=== PATIENT | female | born 1980 | race Caucasian/White ===

== ENCOUNTER → 2017-02-13 | Day surgery (SDC) | payer BC ==
[~2017-02-13] MED LIST: Glycopyrrolate 0.2 MG/ML SDV IVPUSH ONE; Lactated Ringers 1,000 ML IV SCH; Propofol 200 MG/20 ML SDV IV ONE
[2017-02-13 09:48] VITALS: BP 150/92
--- NOTE | 2017-02-13 10:47 | OR ---
DATE OF OPERATION: 02/13/2017 PREOPERATIVE DIAGNOSIS: PERSISTENT NAUSEA AND VOMITING. POSTOPERATIVE DIAGNOSIS: PERSISTENT NAUSEA AND VOMITING. SURGEON: Tyler Jones MD PROCEDURE: ESOPHAGOGASTRODUODENOSCOPY WITH BIOPSIES X2, JOLIE. 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 COMPLICATIONS: None. SPECIMEN: 1. Duodenal biopsy x1. 2. Distal esophageal biopsy x1. 3. JOLIE. FINDINGS: 1. Full-length EGD. 2. Minimal duodenitis. 3. GERD with mild grade 1 distal esophagitis. RECOMMENDATIONS: Medical followup with Dr. Traore. INDICATIONS: The patient has been having some ongoing issues for a few weeks of nausea and emesis not associated with much abdominal pain. Dr. Traore sent her for EGD. DESCRIPTION OF PROCEDURE: The patient was prepped and draped, placed in the left lateral decubitus position. A lubricated Olympus gastroscope was inserted over a bit and easily intubated in the esophagus. Esophageal lining was benign until its most distal portion. She has no hiatal hernia, but there was some spontaneous reflux with mild distal esophagitis grade 1 without any ulceration. Biopsy of the distal esophagus and its most affected portion were taken. Scope was advanced into the stomach through the pylorus into the 2nd portion of the duodenum. The 2nd portion of duodenum was benign. The bulb had a very very mild amount of erythema, maybe consistent with some mild duodenitis. A biopsy was taken. The scope was brought back into the stomach and retroflexed. The upper fundus and cardia appeared benign. Upon straightening and thorough evaluation of the rest of the fundus and antrum showed no gross abnormalities including polyps, mass, ulceration, bleeding sites or any signs of gastritis. A CLOtest was obtained. Air was then suctioned. Scope was removed without complication. GUADALUPE/ANCELMO /[id number]
== END ==
LOC: CC.SDS 08:26
PROVIDERS: ATTEND Family Medicine
DX: K21.0 Gastro-esophageal reflux disease with esophagitis (principal); K29.80 Duodenitis without bleeding; I10 Essential (primary) hypertension; Z91.09 Other allergy status, other than to drugs and biological substances; Z79.82 Long term (current) use of aspirin; Z79.899 Other long term (current) drug therapy; Z98.890 Other specified postprocedural states
CPT/HCPCS: 43239; 87081; J2704; J7120

== ENCOUNTER 2017-04-13 16:12 | Observation (INO) | payer BC ==
[2017-04-13 16:39] LABS: CHLORIDE,CL 102 mEq/L (98-106); SODIUM,NA 140 mEq/L (136-145)
[2017-04-13] MEDS ORDERED: Lactated Ringers 1,000 ML IV SCH ×2 (17:20→21:45)
[2017-04-13] MEDS ORDERED: Iopamidol 612 MG/ML 100 ML Bottle IVPUSH ONE (19:05)
[2017-04-13] MEDS ORDERED: Enoxaparin 40 MG/0.4 ML Syringe SUBCUT SCH (21:00)
[2017-04-13] MEDS ORDERED: Levofloxacin/Dextrose 5%-Water 500 MG in Premix Bag 1 BAG IV SCH (21:00)
[2017-04-13] MEDS ORDERED: Levofloxacin/Dextrose 5%-Water 100 ML IV ONE (21:17)
[2017-04-13] MEDS ORDERED: metroNIDAZOLE/Normal Saline 100 ML ONE (21:17)
[2017-04-13] MEDS ORDERED: Ondansetron 4 MG/2 ML SDV ONE (21:23)
[2017-04-13] MEDS ORDERED: Ondansetron 4 MG/2 ML SDV IV PRN (21:38)
[2017-04-13] MEDS ORDERED: Sodium Chloride 0.9% 10 ML Syringe FLUSH PRN (21:45)
[2017-04-13] MEDS ORDERED: fentaNYL 100 MCG/2 ML SDV IVPUSH PRN (21:45)
[2017-04-13] MEDS: metroNIDAZOLE/Normal Saline 500 MG in Premix Bag 1 BAG IV SCH (22:00)
[2017-04-14] MEDS: metroNIDAZOLE/Normal Saline 500 MG in Premix Bag 1 BAG IV SCH (05:49)
--- NOTE | 2017-04-14 08:29 | PCM.DCSUM1 ---
Discharge Summary - Hospital Course Free Text/Narrative:: Patient is a 36 year old female who was admitted to the hospital from the clinic on 04/13/2017. She presented to the clinic with complaints of colicky upper quadrant abdominal pain starting around 4 am that became more constant throughout the day. She described the pain as sharp and crampy. She was having nausea with intermittent vomiting, as well as loose stools. Denied any fever, melena, hematochezia, or hematemesis. Her WBC and CRP were elevated, so she had an abdominal/pelvic CT which showed diffuse ileitis. She received IV fluids, as well as dose of IV antibiotics. She was unable to keep fluids or medications down, so she was admitted for observation. Throughout night, patients nausea and vomiting resolved. At time of discharge, patient was tolerating oral intake. Her abdominal pain had also improved. Her WBC was 12.8 on admission and 6.4 upon discharge. She was afebrile. She felt ready to discharge home on oral antibiotics. - Discharge Data Discharge Date: 04/14/17 Discharge Disposition: Home, Self-Care 01 Condition: Good - Discharge Diagnosis/Problem(s) (1) Ileitis SNOMED Code(s): 33659536 ICD Code: K52.9 - NONINFECTIVE GASTROENTERITIS AND COLITIS, UNSPECIFIED Status: Acute Priority: High - Patient Instructions Diet: Usual Diet as Tolerated (bland diet until abdominal pain & nausea resolve completely ) Activity: As Tolerated Notify Provider of: Fever, Increased Pain, Nausea and/or Vomiting - Discharge Plan Prescriptions/Med Rec: Ciprofloxacin [Ciprofloxacin HCl] 500 mg PO BID 10 Days #20 tablet metroNIDAZOLE [Flagyl] 500 mg PO Q8H 10 Days #30 tablet Ondansetron [Zofran] 4 mg PO Q6H PRN #30 tab PRN Reason: Nausea Home Medications: Home Meds Norethindrone Acetate 1 tab PO DAILY 03/02/15 [History] Topiramate [Topamax] 1 tab PO DAILY 03/02/15 [History] Protriptyline HCl [Protriptyline] 20 mg PO BEDTIME 01/11/16 [History] Aspirin [Alysa Chewable Aspirin] 81 mg PO DAILY 05/03/16 [History] Atenolol 25 mg PO DAILY 05/03/16 [History] Albuterol Sulfate 2.5 mg IH Q4H PRN 02/12/17 [History] Cholecalciferol (Vitamin D3) [Vitamin D3] 2 tab PO DAILY 02/12/17 [History] SUMAtriptan Succinate [Imitrex] 50 mg PO ASDIRECTED 02/12/17 [History] Vortioxetine Hydrobromide [Trintellix] 10 mg PO DAILY 02/12/17 [History] guaiFENesin/Dextromethorphan [Mucinex Dm ER 600-30 mg Tablet] 1 each PO BID [History] Metoclopramide HCl [Reglan] 5 mg PO TID 04/13/17 [History] Ciprofloxacin [Ciprofloxacin HCl] 500 mg PO BID 10 Days #20 tablet 04/14/17 [Rx] Ondansetron [Zofran] 4 mg PO Q6H PRN #30 tab 04/14/17 [Rx] metroNIDAZOLE [Flagyl] 500 mg PO Q8H 10 Days #30 tablet 04/14/17 [Rx] Patient Handouts: Abdominal Pain, Adult, [id number], Nausea and Vomiting, Adult Referrals: Stanley Traore MD [Family Provider] - - Discharge Summary/Plan Comment Discharge Summary/Plan Comment: Patient will be discharge home on 10 day antibiotic regimen as advised by GI. Harrison as needed for nausea. Follow up in clinic with Dr. Traore in one week. C-reactive protein at that time. Patient to get lab work prior to appointment. Arrangements will be made at that time for colonoscopy. - General Info Date of Service: 04/14/17 Admission Dx/Problem (Free Text: Diffuse Ileitis Subjective Update: Patient reports her nausea and vomiting have resolved. She does still have some tenderness to her upper abdomen, but reports it is much improved. Has been afebrile and tolerating oral intake. Functional Status: Reports: Pain Controlled, Tolerating Diet, Ambulating, Urinating. Denies: New Symptoms - Review of Systems General: Reports: No Symptoms. Denies: Fever, Weakness, Fatigue, Chills HEENT: Reports: No Symptoms Pulmonary: Reports: No Symptoms. Denies: Shortness of Breath, Cough Cardiovascular: Reports: No Symptoms. Denies: Chest Pain, Lightheadedness Gastrointestinal: Reports: Abdominal Pain (upper ), Decreased Appetite. Denies : Diarrhea, Hematochezia, Melena, Nausea, Vomiting Genitourinary: Reports: No Symptoms. Denies: Dysuria, Frequency - Patient Data Vitals - Most Recent: Last Vital Signs Temp 98.8 F 04/14/17 04:00 Pulse 87 04/14/17 04:00 Resp 16 04/14/17 04:00 BP 149/80 H 04/14/17 04:00 Pulse Ox 97 04/14/17 04:00 Weight - Most Recent: 168 lb 10.458 oz I&O - Last 24 hours: Intake & Output 04/13/17 04/14/17 04/14/17 22:59 06:59 14:59 Intake Total 100 Balance 100 Lab Results - Last 24 hrs: Laboratory Results - last 24 hr 04/13/17 04/13/17 04/14/17 Range/Units 16:19 16:19 05:11 WBC 12.8 H 6.4 (5.0-10.0) 10^3/uL RBC 5.73 H 4.87 (4.00-5.50) 10^6/uL Hgb 16.9 H 14.5 (12.0-16.0) g/dL Hct 48.0 H 41.7 (37.0-47.0) % MCV 83.8 85.6 (82.0-94.0) fL MCH 29.5 29.8 (27.0-32.0) pg MCHC 35.2 34.8 (33.0-38.0) g/dL RDW Coeff of Vicky 13.2 13.0 (11.0-15.0) % Plt Count 328 258 (150-400) 10^3/uL Neut % (Auto) 84.0 76.0 (35-85) % Lymph % (Auto) 8.5 L 13.9 (10-55) % Turner % (Auto) 6.5 8.5 (0-16) % Eos % (Auto) 0.9 1.4 (0-5) % Baso % (Auto) 0.1 0.2 (0-3) % Neut # (Auto) 10.77 H 4.85 (1.80-7.00) 10^3/uL Lymph # (Auto) 1.09 0.89 L (1.00-4.80) 10^3/uL Turner # (Auto) 0.83 H 0.54 (0.00-0.80) 10^3/uL Eos # (Auto) 0.11 0.09 (0.00-0.45) 10^3/uL Baso # (Auto) 0.01 0.01 10^3/uL Sodium 140 (136-145) mEq/L Potassium 4.0 (3.5-5.0) mEq/L Chloride 102 (98-106) mEq/L Carbon Dioxide 28 (21-32) mmol/L BUN 10 D (7-18) mg/dL Creatinine 0.7 (0.6-1.0) mg/dL Est Cr Clr Drug Dosing TNP Estimated GFR (MDRD) > 60 (>=60) mL/min Glucose 106 H (75-99) mg/dL Calcium 8.6 (8.4-10.1) mg/dL Total Bilirubin 1.5 H (0.0-1.0) mg/dL AST 16 (15-37) U/L ALT 26 (12-78) U/L Alkaline Phosphatase 82 (46-116) U/L C-Reactive Protein 2.9 H (0.2-0.8) mg/dL Total Protein 7.7 (6.4-8.2) g/dL Albumin 4.1 (3.4-5.0) g/dL Amylase 48 (25-115) U/L 04/14/17 Range/Units 05:11 WBC (5.0-10.0) 10^3/uL RBC (4.00-5.50) 10^6/uL Hgb (12.0-16.0) g/dL Hct (37.0-47.0) % MCV (82.0-94.0) fL MCH (27.0-32.0) pg MCHC (33.0-38.0) g/dL RDW Coeff of Vicky (11.0-15.0) % Plt Count (150-400) 10^3/uL Neut % (Auto) (35-85) % Lymph % (Auto) (10-55) % Turner % (Auto) (0-16) % Eos % (Auto) (0-5) % Baso % (Auto) (0-3) % Neut # (Auto) (1.80-7.00) 10^3/uL Lymph # (Auto) (1.00-4.80) 10^3/uL Turner # (Auto) (0.00-0.80) 10^3/uL Eos # (Auto) (0.00-0.45) 10^3/uL Baso # (Auto) 10^3/uL Sodium (136-145) mEq/L Potassium (3.5-5.0) mEq/L Chloride (98-106) mEq/L Carbon Dioxide 28 (21-32) mmol/L BUN 5 L (7-18) mg/dL Creatinine 0.6 (0.6-1.0) mg/dL Est Cr Clr Drug Dosing 106.19 Estimated GFR (MDRD) > 60 (>=60) mL/min Glucose 101 H (75-99) mg/dL Calcium 8.3 L (8.4-10.1) mg/dL Total Bilirubin (0.0-1.0) mg/dL AST (15-37) U/L ALT (12-78) U/L Alkaline Phosphatase (46-116) U/L C-Reactive Protein 4.5 H (0.2-0.8) mg/dL Total Protein (6.4-8.2) g/dL Albumin (3.4-5.0) g/dL Amylase (25-115) U/L Med Orders - Current: Current Medications Enoxaparin Sodium (Lovenox) 40 mg SUBCUT Q24H [facility] Fentanyl (Sublimaze) 25 mcg IVPUSH Q6H PRN PRN Reason: Pain Lactated Ringer's (Ringers, Lactated) 1,000 mls @ 125 mls/hr IV ASDIRECTED [facility] Last Admin: 04/14/17 00:09 Dose: 125 mls/hr Metronidazole 500 mg/ Premix 100 mls @ 100 mls/hr IV Q8H [facility] Levofloxacin/Dextrose 500 mg/ (Premix) 100 mls @ 100 mls/hr IV Q24H [facility] Ondansetron HCl (Zofran) 4 mg IV Q4H PRN PRN Reason: Nausea/Vomiting Last Admin: 04/13/17 21:57 Dose: 4 mg Sodium Chloride (Saline Flush) 10 ml FLUSH ASDIRECTED PRN PRN Reason: Keep Vein Open Discontinued Medications Enoxaparin Sodium (Lovenox) 40 mg SUBCUT Q24H [facility] Last Admin: 04/13/17 22:15 Dose: 40 mg Lactated Ringer's (Ringers, Lactated) 1,000 mls @ 250 mls/hr IV ASDIRECTED [facility] Last Admin: 04/13/17 17:38 Dose: 250 mls/hr Levofloxacin/Dextrose (Levaquin In D5w 500 Mg/100 Ml) Confirm Administered Dose 100 mls @ as directed IV .STK-MED ONE Stop: 04/13/17 21:18 Last Admin: 04/13/17 22:02 Dose: Not Given Metronidazole (Flagyl 500 Mg In Ns 100 Ml) Confirm Administered Dose 100 mls @ as directed .ROUTE .STK-MED ONE Stop: 04/13/17 21:18 Last Admin: 04/13/17 22:01 Dose: Not Given Levofloxacin/Dextrose 500 mg/ (Premix) 100 mls @ 100 mls/hr IV Q24H [facility] Last Admin: 04/13/17 21:59 Dose: 100 mls/hr Metronidazole 500 mg/ Premix 100 mls @ 100 mls/hr IV Q8H [facility] Last Admin: 04/14/17 05:49 Dose: 100 mls/hr Iopamidol (Isovue-300 (61%)) 100 ml IVPUSH ONETIME ONE Stop: 04/13/17 19:06 Last Admin: 04/13/17 19:29 Dose: 100 ml Ondansetron HCl (Zofran) Confirm Administered Dose 4 mg .ROUTE .STK-MED ONE Stop: 04/13/17 21:24 Last Admin: 04/13/17 22:02 Dose: Not Given - Exam General: Reports: Alert, Oriented Lungs: Reports: Clear to Auscultation, Normal Respiratory Effort Cardiovascular: Reports: Regular Rate, Regular Rhythm GI/Abdominal Exam: Normal Bowel Sounds, Soft, No Organomegaly, No Distention, No Abnormal Bruit, No Mass, Pelvis Stable, Tender (upper abdomen). No: Distended, Guarding, Rigid, Rebound Neurological: Reports: No New Focal Deficit Psy/Mental Status: Reports: Alert, Normal Affect, Normal Mood *Q Meaningful Use (DIS) - VTE *Q VTE Criteria *Q: - Stroke *Q Stroke Criteria *Q: - AMI *Q AMI Criteria *Q:
[2017-04-14] MEDS ORDERED: FLU Vacc QS 2017-18 (36mos UP)/PF 60 MCG/0.5 ML Syringe IM ONE (08:45)
[2017-04-14 09:08] VITALS: BP 144/78
[2017-04-14 09:14] LABS: CHLORIDE,CL 104 mEq/L (98-106); SODIUM,NA 139 mEq/L (136-145)
--- NOTE | 2017-04-14 09:50 | PN ---
DATE: 04/14/2017 Laura Bautista is in with an abdominal pain, CT shows ileitis, question Crohn's, started on IV antibiotics, it is better today, abdomen is basically soft. Lab white count is down from 12 to 6, C-reactive protein is up a little bit at 4.5, panel look good. We will be discharging the patient home today and I will see her back in clinic next week and I will go ahead and do a colonoscopy on her. She will go home on her IV antibiotics. Discharge summary as per Latoya. IRENE/ANCELMO /[id number]
[2017-04-14] MEDS ORDERED: metroNIDAZOLE/Normal Saline 500 MG in Premix Bag 1 BAG IV SCH (16:00)
[2017-04-14] MEDS ORDERED: Levofloxacin/Dextrose 5%-Water 500 MG in Premix Bag 1 BAG IV SCH (20:00)
[2017-04-14] MEDS ORDERED: Enoxaparin 40 MG/0.4 ML Syringe SUBCUT SCH (20:00)
== END 2017-04-14 09:47 | disposition home or self-care (01) ==
LOC: CC.MS 16:12 → CC.FCMC 16:12 → UNDOADMOB 21:15 → CC.MS 21:15
PROVIDERS: ADMIT Physician Assistant Medical; ATTEND General Practice
DX: K52.9 Noninfective gastroenteritis and colitis, unspecified (principal); Z79.82 Long term (current) use of aspirin; Z79.899 Other long term (current) drug therapy; Z91.09 Other allergy status, other than to drugs and biological substances
CPT/HCPCS: 36415; 74020; 74177; 80048; 80053; 82150; 85025; 86140; 96361; 96365; 96366; 96367; 96372; 96375; G0008; G0378; J1650; J1956; J2405; J7120; Q9967; 90686

== ENCOUNTER → 2017-05-15 | Day surgery (SDC) | payer BC ==
[~2017-05-15] MED LIST changes: -Glycopyrrolate 0.2 MG/ML SDV IVPUSH ONE
[2017-05-15 13:08] VITALS: BP 136/75
--- NOTE | 2017-05-15 13:38 | OR ---
DATE OF OPERATION: 05/15/2017 PREOPERATIVE DIAGNOSIS: 1. EPIGASTRIC PAIN. 2. ALTERED BOWEL HABITS. POSTOPERATIVE DIAGNOSIS: 1. EPIGASTRIC PAIN. 2. ALTERED BOWEL HABITS. SURGEON: Tyler Jones MD PROCEDURE: 1. EGD WITH BIOPSIES X3, JOLIE, POLYPECTOMY. 2. FULL-LENGTH COLONOSCOPY WITH RANDOM BIOPSIES X7. 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 COMPLICATIONS: None. SPECIMEN: 1. Duodenal biopsy x1. 2. Antral JOLIE. 3. Fundal polyp. 4. Distal esophageal biopsy x1. 5. Random colon biopsies including terminal ileum x7. FINDINGS: 1. Full-length EGD. 2. Mild duodenitis of the duodenal bulb. 3. Benign adenomatous fundal polyp. 4. Chronic GERD with mild reflux esophagitis. 5. Normal full-length colonoscopy. RECOMMENDATIONS: The patient will be placed on proton pump therapy for her reflux and she will have follow up for path reports with her primary physician. INDICATIONS: The patient has apparently been having some persistent epigastric and substernal pain with some altered bowel habits. Dr. Traore sent her for upper and lower endoscopy. DESCRIPTION OF PROCEDURE: The patient was prepped and draped, placed in the left lateral decubitus position. A lubricated Olympus gastroscope was inserted over a bit and advanced to cricopharyngeus area and easily intubated in the esophagus. Esophageal line was benign in its entire course. The most distal portion of the esophagus showed some mild esophagitis without ulceration or erosion. There was no gross hernia present but spontaneous reflux was seen. Biopsy was taken of the affected portion. The scope was advanced into the stomach through the pylorus into the second portion of duodenum. This was benign. The duodenal bulb did show some mild inflammatory change. A biopsy was taken but no ulcers were seen. The scope was brought back into the stomach. For the most part, the entire gastric lining was unremarkable without any signs of peptic ulcer disease. There was one small benign adenomatous polyp in the upper fundus which was removed with a cold forceps biopsy. CLOtest was obtained. Air was suctioned. Scope was removed without complication. A lubricated Olympus colonoscope was then inserted in usual fashion. We were able to easily advance to the cecum without problem. Ileocecal valve and appendiceal orifice were visualized. We were able to intubate into the ileocecal valve and visualize the terminal ileum. No gross abnormalities were seen. Because of the patient's persistent abdominal pain and some occasional altered bowel habits, random biopsies were taken including of the terminal ileum; a total of seven random biopsies at the terminal ileum, cecum, hepatic and splenic flexure, sigmoid, rectosigmoid, and rectal vault. Throughout the length of the colon, I could really find no signs of any obvious colitis. There were no polyps, masses, ulcerations, or bleeding sites. No vascular abnormalities or diverticula. Retroflexion of the scope in the rectum showed no anal lesions. Air was suctioned. Scope was removed without complication. GUADALUPE/ANCELMO /[id number]
== END ==
LOC: CC.SDS 11:02
PROVIDERS: ATTEND Family Medicine
DX: K31.7 Polyp of stomach and duodenum (principal); K20.9 Esophagitis, unspecified; K52.9 Noninfective gastroenteritis and colitis, unspecified; F41.9 Anxiety disorder, unspecified; F32.9 Major depressive disorder, single episode, unspecified; I10 Essential (primary) hypertension; E78.5 Hyperlipidemia, unspecified; E04.1 Nontoxic single thyroid nodule; E55.9 Vitamin D deficiency, unspecified; Z91.09 Other allergy status, other than to drugs and biological substances; Z79.82 Long term (current) use of aspirin; Z79.899 Other long term (current) drug therapy; Z72.0 Tobacco use
CPT/HCPCS: 36415; 43239; 45380; 84703; 87081; J2704; J7120

== ENCOUNTER → 2019-05-20 | Day surgery (SDC) | payer BC ==
[2019-05-20] MEDS: Lactated Ringers 1,000 ML IV SCH (07:52)
[2019-05-20] MEDS: Benzocaine 20% Oral Spray 59.2 ML Canister MUCMEM ONE (08:02)
[2019-05-20] MEDS: Midazolam 1 MG/ML 2 ML SDV IV ONE (08:04)
[2019-05-20] MEDS: Meperidine PF 25 MG/ML Syringe IV ONE ×2 (08:05→08:14)
[2019-05-20 09:39] VITALS: BP 120/67; PULSE 95
--- NOTE | 2019-05-20 12:57 | OR ---
DATE OF OPERATION: 05/20/2019 PREOPERATIVE DIAGNOSIS: 1. ABDOMINAL PAIN. 2. GASTROESOPHAGEAL REFLUX DISEASE. 3. APPARENT ABNORMAL CT ABDOMEN AND PELVIS. POSTOPERATIVE DIAGNOSIS: 1. FULL-LENGTH EGD. 2. DUODENITIS, DUODENAL BULB. 3. MINIMAL ANTRAL GASTRITIS. 4. SMALL HIATAL HERNIA WITH SPONTANEOUS GERD. 5. POSSIBLE KAY'S ESOPHAGUS. SURGEON: Tyler Jones MD PROCEDURE: EGD WITH BIOPSIES X4, JOLEI. ANESTHESIA: Conscious sedation with continuous O2 saturation monitoring and nurse assist using 50 mg of fentanyl and 4 mg of Versed with O2 sats remaining above 90% for its entirety. COMPLICATIONS: None. SPECIMEN: 1. Duodenal bulb biopsy x2. 2. Antral biopsy x1. 3. Antral JOLIE. 4. Distal esophageal biopsy x1. FINDINGS: 1. Full-length EGD. 2. Duodenitis, duodenal bulb. 3. Minimal antral gastritis. 4. Small hiatal hernia with spontaneous GERD. 5. Possible 1 short-segment Kay's changes. RECOMMENDATIONS: Close medical followup with Dr. Traore. Continue on proton pump therapy. INDICATIONS: The patient apparently had been having about a month or 6 weeks of abdominal pain. She reportedly had abnormal CT scan of the abdomen and pelvis in her "stomach." I do not have that report to visualize. She started the celiac diet and says she has felt wonderful since Dr. Traore sent her for diagnostic EGD. DESCRIPTION OF PROCEDURE: The patient was prepped and draped, placed in the left lateral decubitus position. A lubricated Olympus gastroscope was inserted over a bit, advanced to cricopharyngeus area, and easily intubated in the esophagus. The esophageal lining was benign in its entire course. The Z-line was crisp around 38 cm. There was a small hiatal hernia present with spontaneous reflux. No obvious esophagitis, stricturing, or ulcerations seen. There may be 1 area of short-segment Kay's changes. We did do a biopsy of that. The scope was easily advanced into the stomach, through the pylorus, and into the 2nd portion of the duodenum. This was benign. The duodenal bulb had a couple of focal areas of active duodenitis. Two biopsies were taken. The scope was brought back into the stomach and retroflexed. The upper fundus and cardia were grossly benign. A small hernia was seen from below. No other signs of peptic ulcer disease, ulcerations, mass, polyps otherwise were seen. The small area of the antrum that had some mild gastritis was biopsied and a CLOtest was obtained. Air was then suctioned from the stomach and the scope was removed without complication. GUADALUPE/ANCELMO /[id number]
== END ==
LOC: CC.SDS 07:33
PROVIDERS: ATTEND Family Medicine
DX: K21.0 Gastro-esophageal reflux disease with esophagitis (principal); K29.80 Duodenitis without bleeding; K29.70 Gastritis, unspecified, without bleeding; K44.9 Diaphragmatic hernia without obstruction or gangrene; E78.5 Hyperlipidemia, unspecified; I10 Essential (primary) hypertension; G43.909 Migraine, unspecified, not intractable, without status migrainosus; E55.9 Vitamin D deficiency, unspecified; Z91.048 Other nonmedicinal substance allergy status; Z79.899 Other long term (current) drug therapy
CPT/HCPCS: 43239; 87081; J2175; J2250; J7120

== ENCOUNTER → 2022-07-11 | Day surgery (SDC) | payer BC ==
[~2022-07-11] MED LIST changes: +Ketamine 200 MG/20 ML MDV ONE; +Lidocaine 2% 5 ML SDV ONE; -Propofol 200 MG/20 ML SDV IV ONE; +Propofol 200 MG/20 ML SDV ONE; +fentaNYL 50 MCG/ML SDV ONE
[2022-07-11 14:37] VITALS: BP 142/85; PULSE 75
== END ==
LOC: CC.SDS 08:49
PROVIDERS: ATTEND Family Medicine
DX: K20.90 Esophagitis, unspecified without bleeding (principal); K29.70 Gastritis, unspecified, without bleeding; K29.80 Duodenitis without bleeding; K25.9 Gastric ulcer, unspecified as acute or chronic, without hemorrhage or perforation; E04.1 Nontoxic single thyroid nodule; E55.9 Vitamin D deficiency, unspecified; E78.5 Hyperlipidemia, unspecified; F32.A Depression, unspecified; F41.9 Anxiety disorder, unspecified; G43.909 Migraine, unspecified, not intractable, without status migrainosus; I10 Essential (primary) hypertension; M19.90 Unspecified osteoarthritis, unspecified site; J30.9 Allergic rhinitis, unspecified; Z91.018 Allergy to other foods; Z79.899 Other long term (current) drug therapy
CPT/HCPCS: 00731; 87081; J2704; J3010; J3490

== ENCOUNTER 2023-07-01 08:28 | Emergency (ER) | payer BC ==
[2023-07-01 08:47] VITALS: BP 134/66; PULSE 67
== END 2023-07-01 11:01 | disposition home or self-care (01) ==
LOC: CC.ED 08:28
DX: S06.0X0A Concussion without loss of consciousness, initial encounter (principal); S29.012A Strain of muscle and tendon of back wall of thorax, initial encounter; I10 Essential (primary) hypertension; Z79.899 Other long term (current) drug therapy; Z91.048 Other nonmedicinal substance allergy status; Z91.011 Allergy to milk products; W00.9XXA Unspecified fall due to ice and snow, initial encounter
CPT/HCPCS: 70450; 71250; 99285